=== PATIENT | female | born 1980 | race Caucasian/White ===

== ENCOUNTER → 2023-06-14 09:48 | Outpatient (REF) | payer BC, SELFPAY | LOC: WDC 09:48 | PROVIDERS: ATTENDING PHYSICIAN Nurse Practitioner Family | DX: Z12.31 Encounter for screening mammogram for malignant neoplasm of breast (principal) | CPT/HCPCS: 77063; 77067 ==

== ENCOUNTER → 2024-07-24 08:31 | Outpatient (REF) | payer BC, SELFPAY | LOC: WDC 08:31 | PROVIDERS: ATTENDING PHYSICIAN Nurse Practitioner Family | DX: Z12.31 Encounter for screening mammogram for malignant neoplasm of breast (principal); Z12.39 Encounter for other screening for malignant neoplasm of breast | CPT/HCPCS: 77063; 77067 ==